=== PATIENT | male | born 1960 | race Caucasian/White ===

== ENCOUNTER → 2016-07-05 | Outpatient (CLI) | payer BC ==
[2016-07-05 10:32] LABS: ABSOLUTE EOSINOPHILS # (AUTO) 0.3 10^3/uL (0.0-0.6); ABSOLUTE LYMPHOCYTES (AUTO) 1.3 10^3/uL (0.5-4.7); ABSOLUTE MONOCYTES (AUTO) 0.4 10^3/uL (0.1-1.4); ABSOLUTE NEUT (AUTO) 3.2 10^3/uL (1.7-8.2); BASOPHILS % (AUTO) 0.6 % (0-2); EOSINOPHILS % (AUTO) 5.8 % (0-6); HEMATOCRIT 47.3 % (37.9-51.0); HEMOGLOBIN 16.2 g/dL (13.5-17.0); HGB HCT DIFFERENCE 1.3; LYMPHOCYTES % (AUTO) 25.5 % (13-45); MEAN CORPUSCULAR HEMOGLOBIN 27.8 pg (27.0-33.4); MEAN CORPUSCULAR HGB CONC 34.3 g/dL (32.0-36.0); MEAN CORPUSCULAR VOLUME 81 fl (80-97); MONOCYTES % (AUTO) 6.8 % (3-13); RED BLOOD COUNT 5.85 10^6/uL (4.35-5.55); RED CELL DISTRIBUTION WIDTH 13.2 % (11.5-14.0); SEGMENTED NEUTROPHILS % (AUTO) 61.3 % (42-78); WHITE BLOOD COUNT 5.2 10^3/uL (4.0-10.5)
[2016-07-05 10:40] LABS: APPEARANCE,URINE CLEAR; BILIRUBIN,URINE NEGATIVE (NEGATIVE); GLUCOSE, URINE NEGATIVE (NEGATIVE); KETONES,URINE NEGATIVE (NEGATIVE); LEUKOCYTE ESTERASE,URINE NEGATIVE (NEGATIVE); NITRITE,URINE NEGATIVE (NEGATIVE); PROTEIN,URINE NEGATIVE (NEGATIVE); URINE SPECIFIC GRAVITY 1.017; UROBILINOGEN,URINE NEGATIVE mg/dL (<2.0)
[2016-07-05 10:51] LABS: CHOLESTEROL 214.91 mg/dL (0-200); Direct HDL 39 mg/dL (>40); TRIGLYCERIDES 140 mg/dL (<150)
[2016-07-05 11:02] LABS: DIRECT LDL 142 mg/dL (<100)
[2016-07-08 17:37] LABS: NORMETANEPHRINE 83 pg/mL (0-145)
[2016-07-09 11:02] LABS: METANEPHRINE <10 pg/mL (0-62)
== END ==
LOC: OD 09:49
DX: I10 Essential (primary) hypertension (principal); Z79.899 Other long term (current) drug therapy
CPT/HCPCS: 36415; 80061; 81001; 82088; 83036; 83835; 84153; 84244; 84443; 85025

== ENCOUNTER 2018-03-20 11:29 | Emergency (ER) | payer OTHER ==
[2018-03-20] MEDS ORDERED: TETRACAINE HCL 0.5% OPH SOLN 4 ML ONE (11:44)
--- NOTE | 2018-03-20 11:54 | ER Document Report ---
ED Eye Complaint - General Chief Complaint: Eye Injury Stated Complaint: EYE INJURY Time Seen by Provider: 03/20/18 11:46 Notes: Patient was using a ice grinder this morning and he felt something thrown from the ice grinder and hit his left arm and ricocheted and hit his lateral lower left eye. He had a sensation he might have something in his eye and then noted that it was bleeding. The bleeding he observed was always contained within the conjunctiva and never bled outside of the eyeball and conjunctiva. He never had any blood trickle down his cheek, etc. He has no loss of vision. It is not painful. He notes that he can feel the area that swollen when he blinks. Has not noted any excessive tearing from that eye either. Patient has high blood pressure and is on multiple medications. He checks his blood pressure at home daily. He usually runs about 150/90-100. TRAVEL OUTSIDE OF THE [place] IN LAST 30 DAYS: No - Related Data Allergies/Adverse Reactions: No Known Allergies Allergy (Verified 05/10/14 05:53) Past Medical History - Social History Smoking Status: Current Some Day Smoker Chew tobacco use (# tins/day): No Drug Abuse: None Family History: Reviewed & Not Pertinent, Hypertension Patient has suicidal ideation: No Patient has homicidal ideation: No - Past Medical History Cardiac Medical History: Reports: Hx Hypertension GI Medical History: Reports: Hx Gastroesophageal Reflux Disease Past Surgical History: Reports: Hx Orthopedic Surgery - L4 - Immunizations Hx Diphtheria, Pertussis, Tetanus Vaccination: Yes Review of Systems - Review of Systems Notes: CONSTITUTIONAL : Denies fever. CARDIOVASCULAR: Denies chest pain. RESPIRATORY: Denies cough, chest congestion, or shortness of breath. GASTROINTESTINAL: Denies abdominal pain or nausea, vomiting, or diarrhea. GENITOURINARY: Denies difficulty or painful urinating, urinary frequency, blood in urine. Physical Exam - Vital signs Interpretation: Hypertensive - Notes Notes: PHYSICAL EXAMINATION: GENERAL: Well-appearing, no acute distress. HEAD: Atraumatic, normocephalic. Left eye has almost complete coverage of the sclera in the lower half of the eyeball underlying the conjunctiva. It appears to be a well contained injury with rupture of a blood vessel or 2 in the sub-conjunctival region. I do not see any evidence of a puncture or a breech in the integrity of the conjunctiva. Patient has normal vision. Eyeball is not significantly tender to the touch. Extraocular movements are all normal. There is no involvement of the cornea so I am not doing a floor seen test. I am considering in my evaluation that the patient could have a puncture wound of the eye with a retained foreign body , but that does not fit with his symptoms and physical findings in my opinion. I think a reasonable approach is for him to observe for any new or worsening symptoms and return if that happens. NECK: Normal range of motion, supple. LUNGS: Breath sounds clear and equal bilaterally. HEART: Regular rate and rhythm without murmurs heard. ABDOMEN: Soft, nontender. No guarding or rebound or masses felt. Discharge - Discharge Clinical Impression: Eye injury, non-penetrating, Subconjunctival hemorrhage of left eye Condition: Stable Disposition: HOME, SELF-CARE Additional Instructions: Eye Injury You have been evaluated for an eye injury or problem. At this time no serious, vision-threatening problem could be found. If an infection is suspected or to prevent an infection, antibiotics drops may be prescribed. Pain medication may be required. Don't drive or operate machinery until you have the use of both your eyes. Call the doctor or return at once if you develop severe pain, decreasing vision, eye swelling, or pus drainage. Subconjunctival Hemorrhage You've had an episode of bleeding between the sclera (white of the eye) and the membrane which covers it. While ugly, this bleeding is not dangerous in any way. Your eye has been examined to ensure that no internal hemorrhage is present. While subconjunctival hemorrhage can be caused by a minor injury, it is usually due to coughing, sneezing, straining, or rubbing the eye. There is no specific treatment. Expect the red area to spread considerably. Avoid rubbing the eye. It may take two or three weeks for the blood to clear. If you have any pain, discharge from the eye, or problems with your vision , call the doctor or return immediately for re-evaluation. If you develop any loss of vision in the eye, bleeding from the eye, significant pain in the eye, return for us to reevaluate your condition. You should expect that this hemorrhage will persist for up to a couple of weeks. Avoid rubbing the eye. If your eye is not showing any improvement and you are concerned about it, I have provided you with contact information for Dr. Ergas, a local primary education professor, who is in practice with Dr. Alberta Lawson and I would recommend either of them for a follow-up visit. Your blood pressure is somewhat elevated today. Primary care provider recheck your blood pressure in a few days when you are not under the stress of the emergency department to see if your blood pressure needs further medication changes or adjustments. FOLLOW-UP CARE: If you have been referred to a physician for follow-up care, call the physician s office for an appointment as you were instructed or within the next two days. If you experience worsening or a significant change in your symptoms, notify the physician immediately or return to the Emergency Department at any time for re-evaluation. Referrals: LUIS FERNANDO VERONICA MD [ACTIVE STAFF] - Follow up as needed
== END 2018-03-20 11:52 | disposition home or self-care (01) ==
LOC: ER 11:29
DX: S05.92XA Unspecified injury of left eye and orbit, initial encounter (principal); H11.32 Conjunctival hemorrhage, left eye; W20.8XXA Other cause of strike by thrown, projected or falling object, initial encounter; Y93.89 Activity, other specified; I10 Essential (primary) hypertension; Z79.899 Other long term (current) drug therapy; F17.200 Nicotine dependence, unspecified, uncomplicated
CPT/HCPCS: 99283